=== PATIENT | female | born 1995 | race Caucasian/White ===

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

== ENCOUNTER 2020-06-25 13:30 | Emergency (ER) | payer OTHER, BC ==
[~2020-06-25] VITALS: Ht 160 cm; Wt 61.2 kg
== END 2020-06-25 14:10 | disposition home or self-care (01) ==
LOC: ED 13:30
DX: S06.0X0A Concussion without loss of consciousness, initial encounter (principal); S16.1XXA Strain of muscle, fascia and tendon at neck level, initial encounter; V47.6XXA Car passenger injured in collision with fixed or stationary object in traffic accident, initial encounter
CPT/HCPCS: 99283